=== PATIENT | female | born 1980 | race Caucasian/White ===

== ENCOUNTER 2021-03-17 16:22 | Emergency (ER) | payer OTHER ==
[2021-03-17 17:10] LABS: HEMOGLOBIN 12.6 gm/dl (12.3-15.3); RED BLOOD COUNT 5.18 M/UL (4.00-5.10); WHITE BLOOD COUNT 5.6 K/UL (4.5-11.0)
[2021-03-17 17:34] LABS: BUN/CREATININE RATIO 17 (0-10)
== END 2021-03-17 16:50 | disposition home or self-care (01) ==
LOC: ER1 16:22
PROVIDERS: Physician Assistant
DX: T51.91XA Toxic effect of unspecified alcohol, accidental (unintentional), initial encounter (principal)
CPT/HCPCS: 80053; 80307; 82009; 82550; 82553; 83874; 84484; 85025; 99284; G0480

== ENCOUNTER 2021-04-24 06:13 | Emergency (ER) | payer OTHER ==
[2021-04-24 06:41] LABS: HEMOGLOBIN 12.7 gm/dl (12.3-15.3); RED BLOOD COUNT 4.96 M/UL (4.00-5.10); WHITE BLOOD COUNT 4.9 K/UL (4.5-11.0)
[2021-04-24 07:09] LABS: BUN/CREATININE RATIO 18 (0-10)
[2021-04-24] MEDS ORDERED: OMNICEF 300 MG300 MG PO (18:39)
== END 2021-04-24 18:30 | disposition home or self-care (01) ==
LOC: ER1 06:13
PROVIDERS: Emergency Medicine
DX: F10.239 Alcohol dependence with withdrawal, unspecified (principal); F10.229 Alcohol dependence with intoxication, unspecified; N39.0 Urinary tract infection, site not specified; Z20.822 Contact with and (suspected) exposure to COVID-19
CPT/HCPCS: 80053; 80307; 81001; 83690; 83735; 84703; 85025; 93005; 96374; 99285; G0480; J2060; U0002

== ENCOUNTER 2022-04-03 15:15 | Emergency (ER) | payer OTHER ==
[~2022-04-03 15:15] MED LIST: OMNICEF 300 MG300 MG PO
[2022-04-03 16:20] LABS: BORDETELLA PARAPERTUSSIS Not Detected (Not Detectd); BORDETELLA PERTUSSIS Not Detected (Not Detectd); CHLAMYDIA PNEUMONIAE Not Detected (Not Detectd); CORONAVIRUS HKU1 Not Detected (Not Detectd); CORONAVIRUS NL63 Not Detected (Not Detectd); CORONAVIRUS OC43 Not Detected (Not Detectd); CORONOAVIRUS 229E Not Detected (Not Detectd); HUMAN METAPNEUMOVIRUS Not Detected (Not Detectd); INFLUENZA A Not Detected (Not Detectd); INFLUENZA B Not Detected (Not Detectd); MYCOPLASMA PNEUMONIAE Not Detected (Not Detectd); PARAINFLUENZA VIRUS 1 Not Detected (Not Detectd); PARAINFLUENZA VIRUS 2 Not Detected (Not Detectd); PARAINFLUENZA VIRUS 3 Not Detected (Not Detectd); PARAINFLUENZA VIRUS 4 Not Detected (Not Detectd); RESPIRATORY SYNCYTIAL VIRUS Not Detected (Not Detectd)
[2022-04-03 17:05] LABS: BUN/CREATININE RATIO 21 (0-10)
[2022-04-03 17:21] LABS: HUMAN RHINOVIRUS/ENTEROVIRUS DETECTED (Not Detectd); SARS-CoV-2 NOT DETECTED (Not Detectd)
[2022-04-03] MEDS ORDERED: BENZONATATE200 MG PO (17:52)
[2022-04-03] MEDS ORDERED: ZITHROMAX250 MG PO (17:52)
[2022-04-03] MEDS ORDERED: MEDROL4 MG PO (17:52)
[2022-04-03] MEDS ORDERED: CEFUROXIME500 MG PO (17:52)
== END 2022-04-03 18:10 | disposition home or self-care (01) ==
LOC: ER1 15:15
PROVIDERS: Preventive Medicine Occupational Medicine
DX: J44.0 Chronic obstructive pulmonary disease with (acute) lower respiratory infection (principal); J12.9 Viral pneumonia, unspecified; J44.1 Chronic obstructive pulmonary disease with (acute) exacerbation; F17.200 Nicotine dependence, unspecified, uncomplicated; Z20.822 Contact with and (suspected) exposure to COVID-19
CPT/HCPCS: 36600; 71045; 80053; 82550; 82553; 82803; 83605; 83690; 83880; 84484; 85652; 86140; 87633; 93005; 94664; 96374; 96375; 99285; J0696; J2930

== ENCOUNTER 2022-05-23 16:47 | Emergency (ER) | payer OTHER ==
[~2022-05-23 16:47] MED LIST changes: +BENZONATATE200 MG PO; +CEFUROXIME500 MG PO; +MEDROL4 MG PO; +ZITHROMAX250 MG PO
[2022-05-23 20:51] LABS: RED BLOOD COUNT 4.92 M/UL (4.00-5.10); WHITE BLOOD COUNT 6.9 K/UL (4.5-11.0)
[2022-05-23 21:03] LABS: BUN/CREATININE RATIO 20 (0-10)
[2022-05-23] MEDS ORDERED: IPRAT-ALBUT 0.5-3 ML INH (21:21)
== END 2022-05-23 21:46 | disposition home or self-care (01) ==
LOC: ER1 16:47
PROVIDERS: Student in an Organized Health Care Education/Training Program
DX: U07.1 COVID-19 (principal); J12.82 Pneumonia due to coronavirus disease 2019; F17.210 Nicotine dependence, cigarettes, uncomplicated
CPT/HCPCS: 71045; 80053; 82550; 82553; 84484; 85025; 94664; 96374; 99285; J1100